=== PATIENT | male | born 1970 | race Caucasian/White ===

== ENCOUNTER 2023-04-06 00:56 | Emergency (ER) | payer MEDICAID ==
[~2023-04-06] VITALS: Ht 193 cm; Wt 99.8 kg
[~2023-04-06 00:56] MED LIST: IBUP-1986 PO; NO MEDICATIONS
[2023-04-06 01:03] VITALS: BP 175/117; PULSE 74; RESP 16; TEMP 98.5; O2SAT 97
[2023-04-06] MEDS ORDERED: LISI20TA28 PO (01:37)
[2023-04-06] MEDS ORDERED: HYDR12.55 PO (01:37)
== END 2023-04-06 01:42 ==
LOC: ER 00:57
DX: I10 Essential (primary) hypertension (principal); F15.90 Other stimulant use, unspecified, uncomplicated; F14.10 Cocaine abuse, uncomplicated; Z79.899 Other long term (current) drug therapy; Z79.1 Long term (current) use of non-steroidal anti-inflammatories (NSAID)
CPT/HCPCS: 99283

== ENCOUNTER 2024-09-20 21:52 | Emergency (ER) | payer MEDICAID ==
[~2024-09-20] VITALS: Ht 193 cm; Wt 125.2 kg
[~2024-09-20 21:52] MED LIST changes: +HYDR12.55 PO
[2024-09-20 23:36] VITALS: BP 144/82; PULSE 80; RESP 16; TEMP 98.1; O2SAT 99
== END 2024-09-20 23:37 | disposition home or self-care (01) ==
LOC: ER 21:53
DX: S90.822A Blister (nonthermal), left foot, initial encounter (principal); S90.821A Blister (nonthermal), right foot, initial encounter; F15.90 Other stimulant use, unspecified, uncomplicated; F14.90 Cocaine use, unspecified, uncomplicated; Z79.899 Other long term (current) drug therapy; X58.XXXA Exposure to other specified factors, initial encounter; Y93.89 Activity, other specified; Y92.89 Other specified places as the place of occurrence of the external cause; Y99.8 Other external cause status
CPT/HCPCS: 99282